=== PATIENT | male | born 1940 | race Caucasian/White ===

== ENCOUNTER 2019-03-13 12:27 | Observation (INO) | payer OTHER ==
[~2019-03-13] VITALS: Ht 188 cm; Wt 94.8 kg
[2019-03-13 12:42] VITALS: BP_SYST 132
--- NOTE | 2019-03-13 13:00 | NUR ---
Placed in room 8 . Placed on athletic monitor, blood pressure machine and pulse oximeter. To gown for exam. Side rails up. Resumed care.
--- NOTE | 2019-03-13 13:15 | NUR ---
Patient came to the ER due to fall. Patient was using his bedside comode and fell and had lower back pain. Patient came to ER with complaint of abd and lower back pain 05/22. Patient has Parkinson and MS and has bilateral upper and lower extermity weakness. Patient is AOx4. No presentation of acute distress.
--- NOTE | 2019-03-13 13:30 | NUR ---
ER Dr. Llamas at bedside examining patient.
[2019-03-13] MEDS ORDERED: NACL 0.9% 1,000 ML IV ONE (13:54)
[2019-03-13 14:18] LABS: BILIRUBIN,URINE NEGATIVE (NEGATIVE); BLOOD, URINE NEGATIVE (NEGATIVE); CLARITY/URINE CLEAR (CLEAR); COLOR,URINE YELLOW (YELLOW); GLUCOSE,URINE NEGATIVE (NEGATIVE); KETONES,URINE NEGATIVE (NEGATIVE); LEUKOCYTE ESTERASE ,URINE NEGATIVE (NEGATIVE); NITRITE, URINE NEGATIVE (NEGATIVE); PROTEIN URINE TRACE (NEGATIVE); UROBILINOGEN,URINE 0.2 (0.2-1.0)
[2019-03-13 14:34] LABS: BASOPHILS % (AUTO) 0.6 % (0.0-2.0); EOSINOPHILS # (AUTO) 0.1 K/uL (0.0-0.4); EOSINOPHILS % (AUTO) 1.9 % (0.0-4.0); HEMATOCRIT 42.2 % (36-54); LYMPHOCYTES # (AUTO) 0.9 K/uL (1.0-5.5); LYMPHOCYTES % (AUTO) 12.4 % (20.5-51.5); MEAN CORPUSCULAR HEMOGLOBIN 29 pg (27-31); MEAN CORPUSCULAR HGB CONC 33 % (32-36); MEAN CORPUSCULAR VOLUME 87 fL (79.0-98.0); MONOCYTES # (AUTO) 0.6 K/uL (0.0-1.0); MONOCYTES % (AUTO) 8.5 % (1.7-9.3); NEUTROPHILS # (AUTO) 5.3 K/uL (1.8-7.7); NEUTROPHILS % (AUTO) 76.6 % (40.0-70.0); PLATELET COUNT (AUTO) 144 K/uL (130-430); RED BLOOD CELL COUNT(AUTO) 4.83 MIL/uL (4.2-6.2); RED CELL DISTRIBUTION WIDTH 16.8 % (9.0-15.0); WHITE BLOOD COUNT (AUTO) 6.9 K/uL (4.8-10.8)
[2019-03-13 14:51] LABS: ANION GAP 5 (5-15); CHLORIDE 104 mmol/L (98-107); CREATININE 1.11 mg/dL (0.55-1.30); GLUCOSE 137 mg/dL (70-99); POTASSIUM 4.1 mmol/L (3.5-5.1); SODIUM SERUM 140 mmol/L (136-145); UREA NITROGEN, BLOOD 25 mg/dL (8-21)
[2019-03-13 15:07] LABS: ALANINE AMINOTRANSFERASE 12 U/L (12-78); ALBUMIN 3.5 g/dL (3.4-4.8); ASPARTATE AMINOTRANSFERASE 19 U/L (10-37); TOTAL BILIRUBIN 1.5 mg/dL (0.0-1.0)
--- NOTE | 2019-03-13 15:30 | NUR ---
Patient admitted to [facility]. Order received for dx of abd pain and clear liquid diet.
--- NOTE | 2019-03-13 16:00 | NUR ---
Patient requested assitance for bowel movement. Used bed wong.
--- NOTE | 2019-03-13 17:40 | NUR ---
Patient will be admitted to care of RN. Admitted to MST unit. Will go to room 116A. Belongings list completed. Complete and up to date summary report printed. SBAR report to be given at bedside with opportunity for questions.
[2019-03-13 18:01] VITALS: BP_SYST 187
--- NOTE | 2019-03-13 18:22 | NUR ---
RECEIVED FROM ER FOR FALL AT HOME ADMISSION COMPLETED A/O X 4 AND IN NO C/O DISCOMFORT BP 187/[address] RADHA GARZON FOR MEDS ORIENTED TO PLAN OF CARE AND TO CALL LIGHT.RESP EVEN AND UNLABORED SKIN INTACT WILL CONTINUE TO MONITOR CALL BOWIE IN PLACE
[2019-03-13] MEDS ORDERED: TRAZ-219 PO (18:25)
--- NOTE | 2019-03-13 18:30 | NUR ---
ADMISSION PATIENT IS AWAKE AND ALERT SITTING UP IN BED. TRANSFERRED FROM ER VIA GURNEY. PATIENT HAS NO COMPLAINTS AT THIS TIME. PATIENT SHOWS NO SIGNS OF ANY DISTRESS. PATIENT EDUCATED ORTHOTICS PROSTHETICS ASSISTANT LIGHT, CALL LIGHT IS WITH PATIENT.CALLED [employer] FOR DINNER TRAY. DAY NURSE AT BEDSIDE. INFORMED OF ELEVATED BLOOD PRESSURE AND SUICIDAL IDEATION. MD HAS ALREADY BEEN PAGED. CHARGE NURSE ALSO MADE AWARE THAT PATIENT STATES HE HAS HAD THOUGHTS OF SUICIDE BUT DOES NOT HAVE A PLAN. PATIENT STATES 3 WEEKS AGO HE WAS WALKING, PLAYING GOLF AND NOW HE IS BEDBOUND AND CANT DO ANYTHING. JOE CASTANEDA IS AT BEDSIDE.
--- NOTE | 2019-03-13 19:20 | NUR ---
REPORT TO MANAGER [employer] GIVEN WILL FOLLOW UP ON CONTACTING FOR BP MEDS
[2019-03-13 19:45] VITALS: BP_SYST 162
--- NOTE | 2019-03-13 20:00 | NUR ---
Opening notes Pt AAOx4, no s/s distress noted. Pt's BP elevated 162/102 HR 62, pt denies any pain at this time. IV saline lock on R. FA 20G clear and patent. Oriented pt to call light use, pt verb understanding. Fall precaution maintained. Bed low, locked, side rails up, alarm on. To monitor.
[2019-03-13] MEDS ORDERED: MORPHINE 2 MG/ML INJ. SYRINGE IVP PRN (20:30)
[2019-03-13] MEDS ORDERED: ACETAMINOPHEN 325 MG TABLET PO PRN (20:30)
[2019-03-13] MEDS ORDERED: ONDANSETRON HCL 4 MG/2 ML VIAL IVP PRN (20:30)
[2019-03-13] MEDS ORDERED: METOCLOPRAMIDE HCL 10 MG/2 ML VIAL IVP PRN (20:30)
[2019-03-13] MEDS ORDERED: MORPHINE 4 MG/ML INJ. SYRINGE IVP PRN (20:30)
--- NOTE | 2019-03-13 20:45 | NUR ---
Spoke with pt's Sandra on the phone. Informed her to bring pt's list of home meds from home. Verbalized understanding.
[2019-03-13] MEDS ORDERED: traZODone HCL 50 MG TABLET (DESYREL) PO SCH (21:00)
--- NOTE | 2019-03-13 21:10 | NUR ---
Received MD callback Paged Dr. Go at [phone] re pt's elevated BP 162/102. Received callback and order for Clonidine 0.1mg PO Q6PRN for SBP above 160. Will carry out order.
[2019-03-13] MEDS: cloNIDine HCL 0.1 MG TABLET PO PRN (21:19)
--- NOTE | 2019-03-13 21:56 | NUR ---
AT BEDSIDE DR. HERNANDEZ HERE TO SEE PT.
[2019-03-13] MEDS: NACL 0.9% 1,000 ML IV SCH (22:09)
--- NOTE | 2019-03-13 22:30 | NUR ---
NPO after midnight Pt informed of HIDA scan procedure for tomorrow, pt verbalized understanding. Consent signed per pt, pt NPO after midnight.
[2019-03-14] VITALS: BP_SYST 142
--- NOTE | 2019-03-14 00:10 | NUR ---
Rounds Pt asleep, no s/s distress or discomfort noted. VSS. Call light within reach. To monitor.
--- NOTE | 2019-03-14 02:15 | NUR ---
Rounds Pt asleep, respirations even and unlabored. IVF infusing at ordered rate R. FA 20G clear and patent. Call light within reach. Bed low, locked, siderails up x 3, alarm on. To monitor.
--- NOTE | 2019-03-14 04:35 | NUR ---
Rounds Pt asleep, no s/s distress noted. IVF infusing at ordered rate R. FA 20 clear and patent. Call light within reach. Safety maintained. To monitor.
--- NOTE | 2019-03-14 06:25 | NUR ---
Closing notes Pt asleep, easily arousable. No s/s distress noted. Pt incontinent of urine. Pericare/skin care provided. Pt also used the urinal. Call light remains within reach. Bed low, locked, siderails up x 3, bed alarm on. To monitor.
[2019-03-14 07:45] VITALS: BP_SYST 191
--- NOTE | 2019-03-14 08:00 | NUR ---
Note Pt off the floor at 0745am via gurney for HIDA scan. Pt denied any SOB/resp distress or pain/discomfort at this time. IV in right forearm intact and patent infusing IVF's well. No needs noted at this time. Pt was kept NPO for HIDA scan since midnight.
--- NOTE | 2019-03-14 10:00 | NUR ---
Note Pt's was on the floor at 0930am, requested pt's go home and bring pt's medication bottles for correct dosages and frequency. 0950am - pt returned to room for HIDA scan at this time. Catapres PO given for SBP 191/119. Pt's IVF's were reconnected and clear liquids diet given. Pt stable at this time. Call light within reach. Pt's Sandra at bedside. Pt's stated she did not go home for the home medications - will be going in a short time.
[2019-03-14] MEDS: cloNIDine HCL 0.1 MG TABLET PO PRN (10:03)
--- NOTE | 2019-03-14 10:27 | NUR ---
Nutrition Update Anson Scale 18 noted. Pt admitted for abd pain. Diet: clear liquid BMI: 26.8 kg/m2 RD to follow per nutrition care standards.
--- NOTE | 2019-03-14 11:10 | NUR ---
City Administrator Note Noted on Admission Assessment that RN indicated that patient was suicidal. Frances DIAZ reported in bed huddle that patient does not have suicidal ideation. He has been diagnosed with depression and is receiving treatment and medication. Patient has a discharge to SNF order. City Administrator will remain available.
[2019-03-14 12:15] VITALS: BP_SYST 163
[2019-03-14] MEDS ORDERED: TAMS-11 PO (12:38)
[2019-03-14] MEDS ORDERED: CLOP75TA32 PO (12:38)
[2019-03-14] MEDS ORDERED: PRAV40TA PO (12:38)
[2019-03-14] MEDS ORDERED: CARV12.548 PO (12:38)
[2019-03-14] MEDS ORDERED: CARB1TAB10 PO (12:38)
[2019-03-14] MEDS ORDERED: LISI-209 PO (12:40)
[2019-03-14] MEDS ORDERED: CARB-64 PO (12:40)
[2019-03-14] MEDS ORDERED: GLU500 PO (12:44)
[2019-03-14] MEDS ORDERED: ISOS30TA6 PO (12:44)
[2019-03-14] MEDS ORDERED: SERT-131 PO (12:44)
[2019-03-14] MEDS ORDERED: ASCO500T20 PO (12:51)
[2019-03-14] MEDS ORDERED: NAPR220T66 PO (12:51)
[2019-03-14] MEDS ORDERED: ASPI-1153 PO (12:51)
[2019-03-14] MEDS ORDERED: CALC-823 PO (12:51)
--- NOTE | 2019-03-14 13:00 | NUR ---
Note Pt's brought in pt's home medications and they were entered into [facility]. Dr Go was called and notified to reconcile mediations for pt to take in the hospital. notified pt's SBP still high at this time, even after Catapres PO was given at 10am. Spoke to Rayne at [facility].
[2019-03-14] MEDS ORDERED: LISINOPRIL 5 MG TABLET PO ONE (14:15)
[2019-03-14] MEDS ORDERED: CARVEDILOL 12.5 MG TABLET (COREG) PO ONE (14:15)
[2019-03-14] MEDS ORDERED: ISOSORBIDE MONONITRATE 30 MG TAB.ER.24H PO ONE (14:15)
--- NOTE | 2019-03-14 14:30 | NUR ---
Note Pt got OOB with PT and ambulated with PT and walker in hallway. Tolerated ambulation well. Pt's was at bedside at this time.
[2019-03-14] MEDS ORDERED: CARBIDOPA/LEVODOPA 25/100 MG TABLET PO SCH (15:00)
[2019-03-14 15:04] VITALS: BP_SYST 159
[2019-03-14] MEDS: NACL 0.9% 1,000 ML IV SCH (15:15)
--- NOTE | 2019-03-14 16:00 | NUR ---
Note Pt got a bed at [facility], pt was notified and pt's IV was dc'd and site benign - no swelling/redness/bleeding/drainage noted at this time. Pt dressed in orange gown and sheet. All pt's belongings were packed. Staff checked side table and drawers for belongings. Discharge packet ready at nurses' station. Call light within reach at this time. No needs noted at this time.
[2019-03-14 16:30] VITALS: BP_SYST 159
--- NOTE | 2019-03-14 16:45 | NUR ---
Note Called pt's Sandra and notified her that her (pt) will be transferred to [facility] today at 1700. Notified pt that we were able to call and inform his of transfer to [facility].
--- NOTE | 2019-03-14 16:48 | NUR ---
Nutrition Assessment (short note d/t high patient load) A - RD reviewed pertinent nutrition-related info via EMR (physician notes/nursing notes/labs/meds/nursing care trends/care activity). Admission Dx: Abd pain PMH: Parkinson's Dz, HTN MS, prediabetic, HTN per physician notes Current Diet Order/Nutrition Support: Clear liquid x0 days Ht: 6' Wt: 209#/95 kg IBW: 178#/81 kg %IBW: 110% UBW: 209#/95 kg %UBW: 100% BMI: 26.8 kg/m2 (normal for geriatric age) Subjective Info: Pt was seen resting in bed w/ at bedside. Pt reported tolerance to clear liquid diet though was asking for solid foods. RD educated pt on the importance of following physician diet order at this time: clear liquid diet. VIT C, D, and calcium supplementation reported. Pt had a BM today. Pt usually eats a good variety of vegetables and fruits, and stated she prepares most meals. Pt denied any chewing/swallowing problems. No N/V/C/D reported. Per EMR, D/C to SNF. ESTIMATED NUTRITIONAL NEEDS CALORIES/DAY: 2999-7150 kcal/day (25-30 kcal/kg CBW for maintenance) PROTEIN/DAY: 95-114 gm/day (1-1.2 gm/kg CBW for geriatric maintenance) FLUID/DAY: 2.4-2.9 L/day (1 ml/kcal/day for maintenance) D - Suboptimal nutritional intakes related to maintenance as evidenced by restrictive diet order. I - Recommend advance diet per physician. Consider soft (low fiber/bland) diet if/when medically appropriate. M - Monitor appetite and PO intakes w/ goal of pt meeting at least 75% of estimated nutritional needs, labs trending WNL, normal GI function, and skin integrity/wt maintenance E - High risk; F/U within 2-3 days
--- NOTE | 2019-03-14 16:57 | NUR ---
Dietitian Recommendations * Recommend advance diet per physician. Consider soft (low fiber/bland) diet if/when medically appropriate. LP, RD Please refer to Nutrition Assessment for details. Addendum: 03/14/19 at [address] RD Notification received for unspecified reason 03/13/193.
--- NOTE | 2019-03-14 17:05 | NUR ---
Note [facility] ambulance called and stated they are running late and will be here around 1710. Pt was notified.
--- NOTE | 2019-03-14 18:00 | NUR ---
Note EMT at bedside to transfer pt to [facility]. Report was given and discharge packet to EMT to give staff at [facility] staff for continuation of care. Pt denies any SOB/resp distress or pain/discomfort noted at this time. Pt was checked on q1' and PRN all shift for needs and care. Pt stable Pt off the floor via gurney with all belongings to [facility].
[2019-03-14] MEDS ORDERED: CARVEDILOL 12.5 MG TABLET (COREG) PO SCH (21:00)
[2019-03-15] MEDS ORDERED: TAMSULOSIN HCL 0.4 MG CAP PO SCH (09:00)
[2019-03-15] MEDS ORDERED: CLOPIDOGREL BISULFATE 75 MG TABLET PO SCH (09:00)
[2019-03-15] MEDS ORDERED: ASCORBIC ACID 500 MG TABLET PO SCH (09:00)
[2019-03-15] MEDS ORDERED: SERTRALINE HCL 50 MG TABLET PO SCH (09:00)
[2019-03-15] MEDS ORDERED: PRAVASTATIN SODIUM 20 MG TABLET (PRAVACHOL) PO SCH (09:00)
[2019-03-15] MEDS ORDERED: ISOSORBIDE MONONITRATE 30 MG TAB.ER.24H PO SCH (09:00)
[2019-03-15] MEDS ORDERED: ASPIRIN 81 MG TABLET(ECOTRIN) PO SCH (09:00)
[2019-03-15] MEDS ORDERED: CALCIUM CARBONATE/VITAMIN D3 1 TAB TABLET PO SCH (09:00)
[2019-03-15] MEDS ORDERED: ATORVASTATIN 20 MG TABLET PO SCH (09:00)
[2019-03-15] MEDS ORDERED: LISINOPRIL 5 MG TABLET PO SCH (09:00)
[2019-03-15] MEDS ORDERED: CARBIDOPA/LEVODOPA CR 50/200 MG TAB PO SCH (09:00)
== END 2019-03-14 18:00 ==
LOC: SED 12:27 → SMU 15:41
PROVIDERS: ADMIT Internal Medicine Hospice and Palliative Medicine; ATTEND Internal Medicine Hospice and Palliative Medicine
DX: G20 Parkinson's disease (principal); R26.2 Difficulty in walking, not elsewhere classified; I10 Essential (primary) hypertension; E86.0 Dehydration; R53.1 Weakness; K80.20 Calculus of gallbladder without cholecystitis without obstruction; Z90.49 Acquired absence of other specified parts of digestive tract
CPT/HCPCS: 36415; 71045; 72100; 76700; 78226; 80053; 81003; 82550; 84484; 85025; 93005; 96360; 96361 ×2; 97162; 99285; A9537; G0378 ×2; J7030

== ENCOUNTER 2021-01-10 21:57 | Inpatient (IN) | payer OTHER ==
[~2021-01-10] VITALS: Ht 182.9 cm; Wt 83.5 kg
[~2021-01-10 21:57] MED LIST: ASCO500T20 PO; ASPI-1393 PO; CALC-823 PO; CARB-64 PO; CARB1TAB10 PO; CARV12.548 PO; CLOP75TA32 PO; ISOS30TA85 PO; LISI-209 PO; NAPR220T66 PO; PRAV40TA PO; SERT-131 PO; TAMS-11 PO; TRAZ-251 PO
[2021-01-10 22:53] VITALS: BP_SYST 153
[2021-01-10] MEDS ORDERED: NACL 0.9% 1,000 ML IV ONE (23:15)
[2021-01-10] MEDS ORDERED: MORPHINE 2 MG/ML INJ. SYRINGE IVP ONE (23:15)
[2021-01-10 23:55] LABS: ANION GAP 7 (5-15); CALCIUM 8.6 mg/dL (8.4-11.0); CHLORIDE 106 mmol/L (98-107); CREATININE 0.93 mg/dL (0.55-1.30); GLUCOSE 142 mg/dL (70-99); POTASSIUM 3.9 mmol/L (3.5-5.1); SODIUM SERUM 139 mmol/L (136-145); UREA NITROGEN, BLOOD 18 mg/dL (8-21)
[2021-01-11 00:04] LABS: ALANINE AMINOTRANSFERASE 13 U/L (12-78); ALBUMIN 2.7 g/dL (3.4-4.8); ASPARTATE AMINOTRANSFERASE 24 U/L (10-37); LIPASE 67 U/L (73-393)
[2021-01-11] MEDS ORDERED: KETOROLAC TROMETHAMINE 15 MG VIAL IVP ONE (01:15)
[2021-01-11 04:30] VITALS: BP_SYST 141
[2021-01-11 04:32] VITALS: BP_SYST 141
[2021-01-11 08:00] VITALS: BP_SYST 149
[2021-01-11] MEDS ORDERED: ALBUTEROL SULFATE 0.083% 2.5 MG/3 ML VIAL.NEB INH PRN (08:30)
[2021-01-11] MEDS ORDERED: NALOXONE HCL 0.4 MG/ML AMP (NARCAN) IVP PRN (08:30)
[2021-01-11 09:48] LABS: BASOPHILS # (AUTO) 0.1 K/uL (0.0-0.2); BASOPHILS % (AUTO) 1.7 % (0.0-2.0); EOSINOPHILS # (AUTO) 0.1 K/uL (0.0-0.4); EOSINOPHILS % (AUTO) 2.6 % (0.0-4.0); HEMATOCRIT 36.9 % (36-54); HEMOGLOBIN 11.9 g/dL (14.0-18.0); LYMPHOCYTES # (AUTO) 0.5 K/uL (1.0-5.5); LYMPHOCYTES % (AUTO) 9.8 % (20.5-51.5); MEAN CORPUSCULAR HEMOGLOBIN 28 pg (27-31); MEAN CORPUSCULAR HGB CONC 32 % (32-36); MEAN CORPUSCULAR VOLUME 87 fL (79.0-98.0); MONOCYTES # (AUTO) 0.6 K/uL (0.0-1.0); MONOCYTES % (AUTO) 10.8 % (1.7-9.3); NEUTROPHILS # (AUTO) 4.2 K/uL (1.8-7.7); NEUTROPHILS % (AUTO) 75.1 % (40.0-70.0); PLATELET COUNT (AUTO) 158 K/uL (130-430); RED BLOOD CELL COUNT(AUTO) 4.26 MIL/uL (4.2-6.2); RED CELL DISTRIBUTION WIDTH 16.3 % (9.0-15.0); WHITE BLOOD COUNT (AUTO) 5.6 K/uL (4.8-10.8)
[2021-01-11 10:18] LABS: ALANINE AMINOTRANSFERASE 7 U/L (12-78); ALBUMIN 2.5 g/dL (3.4-4.8); ANION GAP 6 (5-15); ASPARTATE AMINOTRANSFERASE 16 U/L (10-37); CALCIUM 8.5 mg/dL (8.4-11.0); CHLORIDE 107 mmol/L (98-107); CREATININE 0.81 mg/dL (0.55-1.30); GLUCOSE 90 mg/dL (70-99); POTASSIUM 3.9 mmol/L (3.5-5.1); SODIUM SERUM 141 mmol/L (136-145); TOTAL BILIRUBIN 0.9 mg/dL (0.0-1.0); UREA NITROGEN, BLOOD 15 mg/dL (8-21)
[2021-01-11] MEDS: POLYETHYLENE GLYCOL 3350, 17 GM/ POWD.PACK PO SCH (19:15)
[2021-01-11] MEDS: MINERAL OIL 30 ML UDC PO SCH (19:15)
[2021-01-11 22:00] VITALS: BP_SYST 144
[2021-01-11] MEDS ORDERED: CARBIDOPA/LEVODOPA CR 50/200 MG TAB PO ONE (22:45)
[2021-01-12 01:00] VITALS: BP_SYST 136
[2021-01-12 06:18] LABS: BASOPHILS % (AUTO) 0.8 % (0.0-2.0); EOSINOPHILS # (AUTO) 0.1 K/uL (0.0-0.4); EOSINOPHILS % (AUTO) 2.2 % (0.0-4.0); HEMATOCRIT 36.1 % (36-54); HEMOGLOBIN 11.7 g/dL (14.0-18.0); LYMPHOCYTES # (AUTO) 0.6 K/uL (1.0-5.5); LYMPHOCYTES % (AUTO) 10.4 % (20.5-51.5); MEAN CORPUSCULAR HEMOGLOBIN 28 pg (27-31); MEAN CORPUSCULAR HGB CONC 33 % (32-36); MEAN CORPUSCULAR VOLUME 87 fL (79.0-98.0); MONOCYTES # (AUTO) 0.6 K/uL (0.0-1.0); MONOCYTES % (AUTO) 10.9 % (1.7-9.3); NEUTROPHILS # (AUTO) 4.3 K/uL (1.8-7.7); NEUTROPHILS % (AUTO) 75.7 % (40.0-70.0); PLATELET COUNT (AUTO) 172 K/uL (130-430); RED BLOOD CELL COUNT(AUTO) 4.16 MIL/uL (4.2-6.2); RED CELL DISTRIBUTION WIDTH 16.6 % (9.0-15.0); WHITE BLOOD COUNT (AUTO) 5.7 K/uL (4.8-10.8)
[2021-01-12 08:45] VITALS: BP_SYST 106
[2021-01-12 08:45] LABS: ANION GAP 7 (5-15); CALCIUM 8.5 mg/dL (8.4-11.0); CHLORIDE 105 mmol/L (98-107); CREATININE 0.69 mg/dL (0.55-1.30); GLUCOSE 83 mg/dL (70-99); POTASSIUM 3.7 mmol/L (3.5-5.1); SODIUM SERUM 140 mmol/L (136-145); UREA NITROGEN, BLOOD 14 mg/dL (8-21)
[2021-01-12] MEDS: POLYETHYLENE GLYCOL 3350, 17 GM/ POWD.PACK PO SCH (11:07)
[2021-01-12] MEDS: MINERAL OIL 30 ML UDC PO SCH (11:07)
[2021-01-12 16:35] VITALS: BP_SYST 132
[2021-01-12 20:00] VITALS: BP_SYST 125
[2021-01-12] MEDS: HYDROcodone/ACETAMIN 5-325 MG TAB (NORCO/ VICODIN) PO PRN (21:52)
[2021-01-13] VITALS (7 sets, daily range): BP systolic 113–156
[2021-01-13] MEDS: POLYETHYLENE GLYCOL 3350, 17 GM/ POWD.PACK PO SCH (08:34)
[2021-01-13] MEDS: MINERAL OIL 30 ML UDC PO SCH (08:34)
[2021-01-13] MEDS: HYDROcodone/ACETAMIN 5-325 MG TAB (NORCO/ VICODIN) PO PRN (08:35)
[2021-01-13 08:38] LABS: BASOPHILS # (AUTO) 0.1 K/uL (0.0-0.2); BASOPHILS % (AUTO) 0.8 % (0.0-2.0); EOSINOPHILS # (AUTO) 0.2 K/uL (0.0-0.4); EOSINOPHILS % (AUTO) 3.4 % (0.0-4.0); HEMATOCRIT 38.5 % (36-54); HEMOGLOBIN 12.4 g/dL (14.0-18.0); LYMPHOCYTES # (AUTO) 0.6 K/uL (1.0-5.5); LYMPHOCYTES % (AUTO) 8.6 % (20.5-51.5); MEAN CORPUSCULAR HEMOGLOBIN 28 pg (27-31); MEAN CORPUSCULAR HGB CONC 32 % (32-36); MEAN CORPUSCULAR VOLUME 87 fL (79.0-98.0); MONOCYTES # (AUTO) 0.6 K/uL (0.0-1.0); MONOCYTES % (AUTO) 9.2 % (1.7-9.3); NEUTROPHILS # (AUTO) 5.3 K/uL (1.8-7.7); PLATELET COUNT (AUTO) 199 K/uL (130-430); RED BLOOD CELL COUNT(AUTO) 4.43 MIL/uL (4.2-6.2); RED CELL DISTRIBUTION WIDTH 16.7 % (9.0-15.0); WHITE BLOOD COUNT (AUTO) 6.8 K/uL (4.8-10.8)
[2021-01-13 09:25] LABS: ALANINE AMINOTRANSFERASE 23 U/L (12-78); ALBUMIN 2.8 g/dL (3.4-4.8); ANION GAP 7 (5-15); ASPARTATE AMINOTRANSFERASE 13 U/L (10-37); CALCIUM 9.1 mg/dL (8.4-11.0); CHLORIDE 103 mmol/L (98-107); CREATININE 0.86 mg/dL (0.55-1.30); GLUCOSE 115 mg/dL (70-99); POTASSIUM 3.9 mmol/L (3.5-5.1); SODIUM SERUM 141 mmol/L (136-145); TOTAL BILIRUBIN 1.7 mg/dL (0.0-1.0); UREA NITROGEN, BLOOD 12 mg/dL (8-21)
[2021-01-13] MEDS ORDERED: BISACODYL 5 MG TABLET.DR (DULCOLAX) PO ONE (17:00)
[2021-01-13] MEDS ORDERED: GOLYTELY / COLYTE SOLUTION 4 LITERS PO ONE (18:00)
[2021-01-14 00:10] VITALS: BP_SYST 151
[2021-01-14] MEDS ORDERED: SIMETHICONE 40 MG/0.6 ML ML ONE (06:29)
[2021-01-14] MEDS: MIDAZOLAM HCL 5 MG/5 ML VIAL ONE ×4 (07:40→08:12)
[2021-01-14] MEDS: MEPERIDINE 100 MG INJ. 100 MG/ML VIAL ONE ×2 (07:40→07:43)
[2021-01-14 08:21] LABS: INR 1.1 (0.80-1.20); PROTHROMBIN TIME 11.9 SECS (9.5-12.5)
[2021-01-14] MEDS: POLYETHYLENE GLYCOL 3350, 17 GM/ POWD.PACK PO SCH (09:00)
[2021-01-14] MEDS: MINERAL OIL 30 ML UDC PO SCH (09:00)
[2021-01-14 10:38] VITALS: BP_SYST 150
[2021-01-14 11:37] VITALS: BP_SYST 151
[2021-01-14 15:59] VITALS: BP_SYST 151
[2021-01-14 20:30] VITALS: BP_SYST 141
[2021-01-14] MEDS: HYDROcodone/ACETAMIN 5-325 MG TAB (NORCO/ VICODIN) PO PRN (21:58)
[2021-01-15 01:06] VITALS: BP_SYST 138
[2021-01-15 08:00] VITALS: BP_SYST 149
[2021-01-15] MEDS: POLYETHYLENE GLYCOL 3350, 17 GM/ POWD.PACK PO SCH (09:00)
[2021-01-15] MEDS: MINERAL OIL 30 ML UDC PO SCH (09:00)
[2021-01-15] MEDS ORDERED: DIATR MEGLU/DIATRIZ SOD 30 ML SOLUTION PO ONE ×2 (10:23→14:32)
[2021-01-15 11:25] VITALS: BP_SYST 151
[2021-01-15 15:35] VITALS: BP_SYST 161
[2021-01-15 20:00] VITALS: BP_SYST 148
[2021-01-15 23:58] VITALS: BP_SYST 140
[2021-01-16] MEDS: MINERAL OIL 30 ML UDC PO SCH ×4 (09:11→16:06)
[2021-01-16] MEDS: POLYETHYLENE GLYCOL 3350, 17 GM/ POWD.PACK PO SCH ×2 (09:17→12:10)
[2021-01-16 12:14] VITALS: BP_SYST 149
[2021-01-16 13:38] VITALS: BP_SYST 154
[2021-01-16 16:30] VITALS: BP_SYST 141
[2021-01-16 16:44] VITALS: BP_SYST 141
== END 2021-01-16 17:20 | disposition hospice, home (50) | DRG 444 ==
LOC: SED 21:57 → SMU 01-11 01:17
PROVIDERS: ADMIT Internal Medicine Hospice and Palliative Medicine; ATTEND Internal Medicine Hospice and Palliative Medicine
PROC: 0DJD8ZZ Inspection of Lower Intestinal Tract, Via Natural or Artificial Opening Endoscopic (ICD-10-PCS; 2021-01-14)
PROC: 0DB98ZX Excision of Duodenum, Via Natural or Artificial Opening Endoscopic, Diagnostic (ICD-10-PCS; principal; 2021-01-14 07:30)
PROC: 0DB78ZX Excision of Stomach, Pylorus, Via Natural or Artificial Opening Endoscopic, Diagnostic (ICD-10-PCS; 2021-01-14 07:30)
DX: K80.00 Calculus of gallbladder with acute cholecystitis without obstruction (principal); E43 Unspecified severe protein-calorie malnutrition; I48.20 Chronic atrial fibrillation, unspecified; K29.70 Gastritis, unspecified, without bleeding; D64.9 Anemia, unspecified; G35 Multiple sclerosis; G20 Parkinson's disease; I10 Essential (primary) hypertension; N40.0 Benign prostatic hyperplasia without lower urinary tract symptoms; R73.03 Prediabetes; E88.09 Other disorders of plasma-protein metabolism, not elsewhere classified; I25.10 Atherosclerotic heart disease of native coronary artery without angina pectoris; K59.09 Other constipation; Z20.822 Contact with and (suspected) exposure to COVID-19; Z74.01 Bed confinement status; Z79.02 Long term (current) use of antithrombotics/antiplatelets; Z87.891 Personal history of nicotine dependence; Z95.5 Presence of coronary angioplasty implant and graft
CPT/HCPCS: 36415; 43239; 45378; 71045; 74270-TC; 76376; 76705; 78226; 80048; 80053; 83605; 83690; 84484; 85025; 85610-TC; 85730-TC; 87081; 88305; 88312; 88313; 93005; 93306; 96361; 96374; 97110-GP; 97163-GP; 97530-GP; 99285; A9537; J2175; J2250; J2270; Q9964; Q9967